=== PATIENT | male | born 1985 | race African-American/Black ===

== ENCOUNTER 2019-07-29 21:12 | Emergency (ER) | payer SELFPAY ==
[~2019-07-29] VITALS: Ht 175.3 cm; Wt 117.9 kg
[2019-07-29 21:18] VITALS: BP 144/65
[2019-07-29 21:50] VITALS: BP 144/65
--- NOTE | 2019-07-29 21:50 | NUR ---
Patient discharged with v/s stable. Written and verbal after care instructions given and explained. Patient alert, oriented and verbalized understanding of instructions. Ambulatory with steady gait. All questions addressed prior to discharge. ID band removed. Patient advised to follow up with PMD. Rx of Flexeril, Ibuprofen, and Ibuprofen given. Patient educated on indication of medication including possible reaction and side effects. Opportunity to ask questions provided and answered. Addendum: 07/29/19 at 2156 by [facility] Patient discharged with v/s stable. Pt seen, treated, and discharged by Jasmin JURADO. Written and verbal after care instructions given and explained. Patient alert, oriented and verbalized understanding of instructions. Ambulatory with steady gait. All questions addressed prior to discharge. ID band removed. Patient advised to follow up with PMD. Rx of Flexeril, Ibuprofen, and Ibuprofen given. Patient educated on indication of medication including possible reaction and side effects. Opportunity to ask questions provided and answered.
== END 2019-07-29 21:50 | disposition home or self-care (01) ==
LOC: MED 21:12
DX: S46.812A Strain of other muscles, fascia and tendons at shoulder and upper arm level, left arm, initial encounter (principal); S16.1XXA Strain of muscle, fascia and tendon at neck level, initial encounter; V89.2XXA Person injured in unspecified motor-vehicle accident, traffic, initial encounter; Y93.89 Activity, other specified; Y92.89 Other specified places as the place of occurrence of the external cause; Y99.8 Other external cause status
CPT/HCPCS: 99283